=== PATIENT | male | born 1930 | race Caucasian/White ===

== ENCOUNTER 2019-04-23 18:42 | Inpatient (IN) | payer OTHER ==
[~2019-04-23] VITALS: Ht 177.8 cm; Wt 94.7 kg
[2019-04-23 18:44] VITALS: BP 161/80
[2019-04-23 20:01] LABS: ABSOLUTE NEUTROPHILS 4.8 thou/uL (1.4-8.2); BASOPHILS 0.8 % (0.0-2.0); EOSINOPHILS 1.9 % (0.0-3.0); HEMATOCRIT 41.7 % (42.0-52.0); HEMOGLOBIN 14.2 gm/dL (14.0-18.0); LYMPHOCYTES 14.1 % (24.0-44.0); MCH 30.9 pg (26.0-34.0); MONOCYTES 11.3 % (1.0-8.0); PLATELET COUNT 166 thou/uL (150-400); POLYS 71.9 % (36.0-66.0); RBC 4.58 mil/uL (4.50-6.00); RDW 13.1 % (10.5-14.5); WBC 6.6 thou/uL (4.0-11.0)
[2019-04-23 20:08] LABS: CALCIUM 9.3 mg/dL (8.5-10.1); CREATININE 1.1 mg/dL (0.7-1.3); POTASSIUM 3.9 mmol/L (3.5-5.1)
[2019-04-23 20:15] LABS: URINE BILIRUBIN NEGATIVE (Negative); URINE BLOOD NEGATIVE (Negative); URINE CLARITY CLEAR; URINE COLOR YELLOW; URINE GLUCOSE-RANDOM* NEGATIVE (Negative); URINE KETONES NEGATIVE (Negative); URINE LEUKOCYTES-REFLEX NEGATIVE (Negative); URINE NITRITE-REFLEX NEGATIVE (Negative); URINE PROTEIN (DIPSTICK) NEGATIVE (Negative)
[2019-04-23 20:22] LABS: AMP/METHAMP Negative (Negative); BARBITURATES Negative (Negative); BENZODIAZEPINES Negative (Negative); COCAINE Negative (Negative); METHADONE Negative (Negative); OPIATES Negative (Negative); PCP Negative (Negative)
[2019-04-23] MEDS ORDERED: AMBIEN 5 MG TABL5 M1 PO (22:48)
[2019-04-23] MEDS ORDERED: PLAVIX 75 MG TA75 M1 PO (22:49)
[2019-04-23] MEDS ORDERED: PROSCAR 5MG TABL5 MG PO (22:49)
[2019-04-23] MEDS ORDERED: LIPITOR40 MG PO (22:49)
[2019-04-23] MEDS ORDERED: FLOMAX0.4 MG PO (22:51)
[2019-04-23] MEDS ORDERED: MOBIC7.5 MG PO (22:51)
[2019-04-23] MEDS ORDERED: NAMENDA PO (22:51)
[2019-04-24 11:01] VITALS: BP 136/80
[2019-04-24 12:30] VITALS: BP 162/92
--- NOTE | 2019-04-24 12:42 | NUR ---
PT ARRIVES TO FLOOR VIA WC FROM ER-BROUGHT TO ER BY DINAH HERNANDEZ-PER DAUGHTER REPORT PT HAS BEEN LIVING AT [facility] ASSISTED LIVING WITH HIS . PT IS 88 YEARS OLD AND IS REPORTED TO HAVE HAD INCREASED AGITATION AND AGGRESSION FOR PAST 1 WEEK-YELLING AT DAUGHTER-MAKING ELOBORATE CLAIMS ABOUT WANTING TO BE A EDUCATIONAL INSTITUTION PRESIDENT-REPORTS POOR SLEEP AND WAS PRESCRIBED AMBIEN-DISCOVERED TO HAVE TAKEN ENTIRE AMBIEN RX IN 2-3 DAYS. UPON ADMIT IS COOPERATIVE-ANSWERS QUESTIONS BUT IS A POOR HISTORIAN-ORIENTED TO NAME AND PLACE. STATES HE IS WILLING FOR TREQTMENT AND RECOGNIZES HE ISN'T "THINKING RIGHT" REQUIRED SBA X2 TO TRANSFER TO -PROVIDED WITH JAMES SAAVEDRA PT DAUGHTER REQUEST. VS [id number]. DENIES C/O PAIN
--- NOTE | 2019-04-24 19:12 | NUR ---
RESTLESS AND CONFUSED SINCE AND DAUGHTER LEFT AFTER 1700 VISITING-REFUSING TO EAT SUPPER INSISTING THAT HE IS BEING PICKED UP TO GO EAT SUPPER WITH HIS . INCONTINENT OF URINE BRIEF CHANGED AND PERINEAL CARE PROVIDED. USING ROLLER WALKER FOR AMBULATION BUT REQUIRES SBA X1-
[2019-04-24 19:16] VITALS: BP 150/84
[2019-04-24 19:54] VITALS: BP 190/96
[2019-04-24 20:56] VITALS: BP 157/91
--- NOTE | 2019-04-24 21:36 | NUR ---
ASSUMED CARE OF THE PT AT 1915 PM. THE PT HAS BECOME MORE AGITATED THE EVENING HAS PROGRESSED, STATING THAT HIS DAUGHTER WAS COMING AND BRINGING HIM FOOD. CAN'T BE REDIRECTED, EACH TIME HE MENTIONS HIS DAUGHTER HE BECOMES MORE AGITATED. HEART RATE REGULAR, LUNGS CLEAR BILATERALLY, RESP, EVEN AND UNLABORED. +BS HEARD IN ALL 4 QUADRANTS. DENIES ANXIETY AND DEPRESSION. REMAINS ON 12 MINUTE CHECKS.
--- NOTE | 2019-04-24 23:49 | NUR ---
THE PT BECAME AGITATED EARLIER IN THE SHIFT. YELLING AT STAFF AND PEERS, YELLING, "WHERE IS MY ? I WANT HER PHONE NUMBER." "TELL HER THAT I AM GOING TO !!" CALLED THE N.P., OBSTETRICS SPECIALIST WHO ORDERED SEROQUEL 25 MG PO WHICH WAS GIVEN TO THE PT, WITH NO EFFECT. CALLED THE N.P. WHO WAS OBSTETRICS SPECIALIST, STATING THAT THE PT WAS BECOMING MORE AGITATED THE EVENING WORE ON. HE ORDERED FOR THE PT TO RECEIVE 2 MG OF HALDOL AND 0.5 MG OF COGENTIN IM, WHICH WERE GIVEN ORDERED. ABOUT 45 MINUTES LATER THE PT WAS ASSISTED TO BED WITH THE ASSISTANCE OF 2. THE BED ALARM WAS TURNED ON AND HE REMAINS ON 12 MINUTE CHECKS FOR HIS SAFETY.
--- NOTE | 2019-04-25 06:30 | NUR ---
THE PT GOT UP TO GO TO THE BATHROOM WITH THE ASSISTANCE OF TWO, HE WAS A LITTLE UNSTEADY ON HIS FEET. DENIES PAIN AT THIS TIME. REMAINS ON 12 MINUTE CHECKS FOR HIS SAFETY.
--- NOTE | 2019-04-25 08:26 | EKG ---
[place] [id number] [facility] [email or web address] [address] ELECTROCARDIOGRAM REPORT Name: KANDICE REAL Room #: 528B-B ADM IN M.R.#: [id number] Admission: 04/24/19 Attend Phys: Maldonado Beckwith DO Discharge: Date of : [birth year] Report #: [id number] THIS REPORT FOR: //name// [facility] ED Test Date: 2019-04-23 Test Time: 19:10:15 Pat Name: KANDICE REAL Department: Room: 528B Gender: M Victim Witness Administrator: IRINA : [id number] Requested By: Edilberto Asher Order Number: [id number] MD: Chilango Meade Measurements Intervals Mckenzie Rate: 93 P: 10 VT: 250 QRS: -42 QRSD: 93 T: 107 QT: 346 QTc: 431 Interpretive Statements Sinus rhythm Prolonged VT interval Abnormal R-wave progression, early transition Nonspecific ST segment abnormality No previous ECG available for comparison Electronically Signed On 04-25-2019 8:26:19 CDT by Chilango Meade [email or web address] <ELECTRONICALLY SIGNED> By: Chilango Meade MD, [facility] 04/25/19 0826 09 09 Chilango Meade MD, [facility] /EPI
[2019-04-25 08:27] VITALS: BP 151/93
--- NOTE | 2019-04-25 12:02 | NUR ---
PATIENT HAS BEEN ANXIOUS - FREQUENT URGES TO URINATE BUT NO OUTPUT WITH URINAL. HAS REQUESTED URINAL SEVERAL TIMES DURING MORNING HOURS. PATIENT SUFFERS FROM BPH AND FAMILY STATES WITHIN NORM BEHAVIOR. PATIENT VERY SOB WHEN EXERTING SELF. PATIENT CONFUSED - NEEDED TO BE REDIRECTED. LEFT WORD WITH DR. RODARTE ABOUT SOB WITH EXERTION. VITAL STABLE 137/78 WITH PULSE OF 100 WHEN RETAKEN.
[2019-04-25 19:41] VITALS: BP 173/78
--- NOTE | 2019-04-26 02:34 | NUR ---
Care assumed of patient at 1900: Patient sitting in day room at start of shift. Patient alert and oriented to person and place. Confusion and forgetfulness noted. Patient started shift pleasant and cooperative. Patient spoke with his around 1929 on the phone to tell her good night. Patient watched the football game with peers. Interacting well with staff and peers. Ate 100% HS snack. Took HS medication without difficulty. At approximately 2114, patient reported to the desk asking to use the phone. Patient was originally told that it was too late to call his and that she was already in bed. Reminded patient that he had already spoke with her. Patient became very agitated. Wandering unit. Setting off door alarms. Going staff to staff to request the phone. Patient stating that he hasn't talked to his since she left earlier in the day. Patient started to become beligerent with staff. Nurse decided to call his daughter to get the phone number for his . was called and she did not answer the phone. Daughter was called back and asked to speak to patient to see if she could assist in calming him down and re-directing. Daughter told patient that she would check on his and it was OK to go to bed. Patient was able to calm down but remained anxious about the well-being of his . Patient requested a sleeping pill. Due to increased anxiety, patient received Seroquel PRN. Patient did have an episode of bladder incontinence. Patient stated that he did not want to get up to go to the bathroom during the football game so he urinated on himself. Staff assisted patient change his clothing and cleaning up. Patient was assisted to bed after the football game. Appeared to fall asleep without difficulty and has been resting quietly since.
[2019-04-26 07:00] VITALS: BP 114/84
--- NOTE | 2019-04-26 11:30 | NUR ---
YELLING OUT FOR HELP FREQUENTLY THIS AM-INITALLY YELLING OUT FOR SELF-"CUT UP MY FOOD,GET ME MORE WATER NURSE" LATER IN AM STARTS YELLING OUOT FOR PEERS "THERE IS A LADY IN THE HALLWAY WHO IS CONFUSED-YOU NEED TO GO HELP HER" OT TO A MALE VISITOR ON UNIT"NURSE YOU NEED TO COME HELP HIM HE IS UPSET" ORIENTED TO NAME ONLY-CONFUSED INSISTS THAT HIS IS ON WAY TO PICK HIM UP. INCONTINENT OF URINE X2 THIS AM-GAIT UNSTEADY DESPIOTE SBA X1 AND ROLLER WALKER.REMAINS HIGH FALLS RISK
--- NOTE | 2019-04-26 12:04 | NUR ---
KVNG met with Treatment team concerning pt not participating in group therapy, rec. therapy. KVNG requested that pt be in room lock-out. Dr. Beckwith mention that the pt will yesi a new placement for memory care due to [facility] not appropriate place to live. SW speak with the family concernign that request. SW will follow-up with the pt and family.
[2019-04-26 19:25] VITALS: BP 160/85
--- NOTE | 2019-04-26 23:27 | NUR ---
Care assumed of patient at 191: Patient alert and oriented to person. Patient intrusive and agitated. Patient yelling out for nursing staff several times. Patient telling all the staff that they are not doing their jobs. Patient worried about other patients needs being met. Patient needing constant re-direction on personal boundaries with other peers. Patient incontinent of bladder x2. Patient currently using w/c for locomotion about his room and the unit. Patient grabbing staff and shaking his finger at them. Patient ate 100% HS snack. Took HS medication without difficulty. Staff assisted patient call his to speak with her before 8pm. Patient's daughter also called to speak with him before bed. Patient reported generalized pain rated 5/10 and was provided PRN Tylenol which was effective. As patient's were being assisted to bed, patient became more agitated and verbally aggressive toward staff. Patient demanding to call the police. Patient was not able to have ordered PRN Seroquel at that time due to it being too soon. MD notified of behaviors and verbal aggression. Order obtained for Geodon 15mg IM 1x dose at 2039. Patient was assisted to the bathroom and to bed at approximately 2200. Patient continues to lay in bed but yells out every few minutes. Patient has not been able to fall asleep as of now. When staff approach patient to see what he needs, he wants to talk to staff and tell them stories. Patient was asked if he wanted to get up, if he was not ready to go to sleep. Patient then states no, I'm going to sleep, "good night". However, he will continue to yell out randomly. Patient is being monitored frequently for safety.
[2019-04-27 07:29] VITALS: BP 131/73
--- NOTE | 2019-04-27 09:00 | NUR ---
PT OUT IN DINNING ROOM EATING BREAKFAST. PT IN GOOD SPIRITS, SAYING GOOD MORNING TO EVERYONE. PT DENIES ANY PAIN. PT UP WITH WALKER. PT KNOWS PLACE THOUGHT IT WAS SEPT. PT LUNGS CLEAR.
--- NOTE | 2019-04-27 11:00 | NUR ---
PT MOVES IN DINING ROOM TO DIFFERENT CHAIRS. PT LIKES TO HELP OTHER RESIDENTS. PT SLOW TO MOVING OR TRANSFERING CHAIRS.
--- NOTE | 2019-04-27 13:09 | NUR ---
PT LIKES TO HELP OTHER LADYS AT HIS TABLE. WHEN THEY STAND-UP HE WANTS THEM TO SIT DOWN IN A CARING WAY. PT FOUND TALKING ON PHONE TO ANOTHERS PT .
--- NOTE | 2019-04-27 14:15 | NUR ---
PT WALKING TO BATHROOM TO VOID. PERFORMED BLADDER SCAN. NO URINE IN BLADDER AT THIS TIME.
--- NOTE | 2019-04-27 16:55 | NUR ---
FAMILY HERE TO VISIT. PT IN W/C AT THIS TIME.
[2019-04-27 19:45] VITALS: BP 139/82
--- NOTE | 2019-04-27 22:55 | NUR ---
ASSUMED CARE OF THE PT AT 1914 PM. ALERT X 1. MAKES NEEDS KNOWN. WALKS WITH AN UNSTEADY GAIT USING A WALKER. HEART RATE REGULAR. LUNGS CLEAR BILATERALLY, RESP., EVEN, AND UNLABORED. +BS HEARD IN ALL 4 QUADRANTS. ABD SOFT ET NONTENDOR. THE PT IS OBESE. HE BECAME AGITATED THIS EVENING, YELLING AT STAFF AND PEERS, REGARDING THE TV CHANNEL BEING CHANGED AND STATING THAT HE WANTED TO CALL HIS , WHICH HE WAS ABLE TO DO SO, HE SETTLES DOWN FOR A LITTLE WHILE, THEN HE STARTED YELLING AGAIN. CALLED THE PHYSICIAN SORTER PRICER AND HE ORDERED FOR THE PT TO GET THORAZINE 25MG IM FOR AGITATION, WHICH WAS GIVEN TO HIS LEFT BUTTOCKS. HE CONTINUED TO YELL OUT, STATING, "FIRE, FIRE." STAFF WENT IN TO SPEAK WITH THE PT., HE CONTINUED TO YELL OUT, ATTEMPTING TO GET OUT OF BED. THIS BOX TOE CEMENTER CALLED THE PHYSICIAN SORTER PRICER, HE ORDERED FOR THE PT TO RECEIVE THORAZINE 12.5 MG IM, WHICH WAS GIVEN ORDERED. AT THIS TIME, THE PT APPEARS TO BE RESTING QUIETLY ON HIS RIGHT SIDE.
--- NOTE | 2019-04-28 04:23 | NUR ---
THE PT GOT UP EARLIER IN THE SHIFT TO USE THE URINAL AND THEN WENT BACK TO SLEEP. RESP., EVEN, AND UNLABORED. DENIES PAIN AT THIS TIME. REMAINS ON 12 MINUTE CHECKS FOR HIS SAFETY.
[2019-04-28 09:12] VITALS: BP 149/82
--- NOTE | 2019-04-28 10:00 | H ---
[facility] [place] [address] HISTORY AND PHYSICAL Name: FARHANKANDICE PINEDA Room #: 528B-B ADM IN M.R.#: [id number] Admission: 04/24/19 Attend Phys: Maldonado Beckwith DO Discharge: Date of : [birth year] Report #: [id number] THIS REPORT FOR: //name// CC: Maldonado Beckwith FAM unknown DATE OF SERVICE: 04/24/2019 INPATIENT PSYCHIATRIC EVALUATION The patient had a prolonged Emergency Room course. He was brought to the ER on the around 1919 hours and does not have a bed available, so had spent the night in the ER. REASON FOR PRESENTATION: Suspected overdose. Daughter stated he has possibly taken 29 Ambien in 1 week, 30, only one left. Confused, agitated in triage. HISTORY OF PRESENT ILLNESS: This is an 88-year-old male who presents to the ED for evaluation of possible overdose on Ambien. Per the patient's daughter at bedside, this patient had taken 30 days' worth of Ambien in 7 days, there is 1 pill left in his bottle, so assumably he took 29 pills in a 7-day period. The patient believes that some fell on the floor and his daughter has the rest, but the daughter states she does not have the pills and there is no evidence of any pills on the floor. The patient denied taking Ambien on the day of presentation. He has free access to medications and no one else manages his medications. The patient's daughter states he has become more belligerent. He lives with his in independent living at [facility], I believe it is called. His spouse left him out of the bedroom last night because she was scared of his belligerence. The patient noted to be agitated, belligerent upon ER examination, repeatedly stating "I'm asleep." Later, he would yell help, help, help unnecessarily despite being checked on numerous times. PAST MEDICAL HISTORY: Insomnia. Denied SI or HI, additional history. HOME MEDICATIONS: Zolpidem 5 mg p.o. at bedtime p.r.n. sleep, atorvastatin 40 mg p.o. daily, clopidogrel 75 mg p.o. daily, finasteride 5 mg p.o. daily, Namenda 28 mg p.o. daily, tamsulosin 0.4 mg p.o. daily, meloxicam 7.5 mg p.o. daily. SOCIAL HISTORY: Remote history of past cigarette use, denies alochol, illicit drugs REVIEW OF SYSTEMS: From the ER: CONSTITUTIONAL: Negative for fever or chills. EYES: Negative for eye pain or visual change. HENT: Negative for rhinorrhea or sore throat. [address] [address] HISTORY AND PHYSICAL Name: KANDICE REAL Room #: 528B-B ADM IN M.R.#: [id number] Admission: 04/24/19 Attend Phys: Maldonado Beckwith DO Discharge: Date of : [birth year] Report #: [id number] RESPIRATORY: Negative for cough or shortness of breath. CARDIOVASCULAR: Negative for chest pain or palpitations. GASTROINTESTINAL: Negative for abdominal pain. No nausea, vomiting or diarrhea. GENITOURINARY: Negative for burning, urgency, frequency or hematuria. MUSCULOSKELETAL: Negative for back pain or muscle pain. SKIN: Negative for any rashes. NEUROLOGICAL: Negative for numbness, tingling or weakness. ENDOCRINE: Negative for diabetes, hypothyroidism. HEMATOLOGIC AND LYMPHATIC:: Negative for easy bruising or bleeding. A 10-point review and interview performed by myself with the same. Weight 95.26 kilos. He is in a wheelchair. Wears glasses. Physical exam was grossly normal. EKG showed a MA interval of 250 milliseconds with first degree block, no STEMI and probable LVH. LABORATORY DATA: Sodium 139, potassium 3.9, chloride 102, carbon dioxide 30, anion gap 7, BUN 15, creatinine 1.1, estimated GFR 63, glucose 107, calcium 9.3. Hematology: White count 6.6, H and H 14.2 and 41.7, platelet count 166. UDS negative. Urinalysis was negative. RADIOLOGY: Chest x-ray showed cardiomegaly with perihilar vascular prominence. He was kept in the ER overnight. They did give him an injection of Geodon and some Valium, I believe. Marijuana was negative. MENTAL STATUS EXAMINATION: In wheelchair. This is a well-developed, slightly disheveled male, wearing a yellow shirt which is for fall risk on our unit. Attention limited. Concentration limited. Speech normal rate. Thought process linear and goal directed. Thought content, focuses his will be coming to receive him and take him out to dinner. Some psychomotor agitation. No psychomotor retardation. I also forgot to note he was perseverative about tea being gotten warm, which it was iced tea in fact. Memory known to be impaired. Mood and affect congruent, labile, not presently euthymic. Insight impaired. Judgment impaired. Fund of knowledge below average. FORMULATION: An 88-year-old male brought in by family, living with his in [place], currently not showing signs of delirium secondary to Ambien overdose and intoxication. DIAGNOSES: Major neurocognitive disorder, likely of brief collateral. I have spoken with his daughter in the ER; behavioral disturbance. PLAN: Evaluate, stabilize, obtain collateral. Regarding his medications, no Namenda for now, as the 28 dose may be provoking agitation. Continue finasteride, continue Plavix and atorvastatin, Seroquel 25 mg p.o. q.6 p.r.n. [facility] [address] [place] [address] HISTORY AND PHYSICAL Name: KANDICE REAL SUNG Room #: 528B-B ADM IN M.R.#: [id number] Admission: 04/24/19 Attend Phys: Maldonado Beckwith DO Discharge: Date of : [birth year] Report #: [id number] agitation, continue tamsulosin 0.4 mg p.o. at bedtime. ESTIMATED LENGTH OF STAY: 10-14 days. Time spent on interview, review of records, coordination of care approximately 45 minutes. STRENGTHS: Insured, has supportive family. WEAKNESSES: Advancing age, likely neurodegenerative disorder, several physical difficulties including gait. Also we will consult PT. Dietitian will be involved as well. <ELECTRONICALLY SIGNED> By: Maldonado Beckwith DO 04/28/19 1000 0054 0133 Maldonado Beckwith, /nt
--- NOTE | 2019-04-29 04:37 | NUR ---
ASSUMED CARE OF PATIENT AT APPROXIMATELY 1915, PATIENT HAS BEEN IN BED WITH EYES CLOSED THROUGHOUT THE SHIFT, R/T PRN MEDICATIONS GIVEN PRIOR TO THIS SHIFTS ARRIVAL. HE STILL CURRENTLY HAS HIS EYES CLOSED, RR EVEN AND UNLABORED, NO S/S OF DISTRESS. NURSING WILL MAINTAIN ALL PRECAUTIONS TO ENSURE SAFETY AT ALL TIMES.
--- NOTE | 2019-04-29 16:49 | NUR ---
PATIENT ALERT TO SELF AND LOCATION AND COOPERATIVE WITH PLAN OF CARE, BUT REFUSES GROUPS. PATIENT ON ROOM LOCK OUT PER DR LOWERY DUE TO REFUSING GROUPS. PATIENT WALKS WITH SBA AND WALKER BUT WALKS VERY SLOWLY. PATIENT HAS FREQUENT URINATION AND STATES HE HAS ENLARGED PROSTATE. PATIENT WEARS BREIF DURING THE DAY. HE INDICATED HE WAS TOLD BY THE PROVIDER TO DRINKS LOTS OF WATER. PATIENT ATTEMPTS TO HELP OTHER PATIENTS FIND THEIR WAY TO THEIR ROOM AND WILL SOMETIMES CALL OUT FOR HELP ON OTHER PATIENTS BEHALF. PATIENT HEAVILY MEDICATED ON 04/28 DUE TO AGITATION AND SLEPT 13 HOURS LAST NIGHT. USING BEDSIDE COMMODE TODAY DUE TO DIFFICULTY GETTING INTO BATHROOM WITH WALKER AND TOILET SEAT LOW TO FLOOR. PATIENT NEEDS HELP WITH PULLING DOWN AND UP BREIF AND PANTS WHEN TOILETING.
--- NOTE | 2019-04-29 18:21 | NUR ---
PATIENT DAUGHTER CALLED INDICATING PATIENT COULDN'T KEEP EYES OPEN DURING THEIR AFTERNOON VISIT AND REQUEST THE PROVIDER REDUCE THE DOSAGE OF THE NEW MEDICATION HE WAS GETTING. THE NEW MEDICATION APPEARS TO BE DIVALPROEX. THIS NURSE AND THE CHARGE NURSE DID NOT NOTICE THE PATIENT UNABLE TO KEEP EYES OPEN TODAY.
[2019-04-29 19:09] VITALS: BP 108/55
--- NOTE | 2019-04-29 19:39 | NUR ---
ASSUMED CARE OF THE PT AT 1914 PM. ALERT ET ORIENTED X 3. MAKES NEEDS KNOWN. HEART RATE REGULAR, LUNGS CLEAR BILATERALLY, RESP., EVEN, AND UNLABOR. +BS HEARD IN ALL 4 QUADRANTS. +PP BILATERALLY, THE PT WAS LYING IN BED WHEN THIS TRANS ROUTER CAME ON DUTY. REMAINS ON 12 MINUTE CHECKS FOR HIS SAFETY.
--- NOTE | 2019-04-30 01:47 | NUR ---
THE PT HAS BEEN UP TO THE BEDSIDE COMMODE X 1 THIS EVENING, ATTEMPTED TO USE THE URINAL, BUT HE WAS UNSUCCESSFUL, VOIDED ON THE FLOOR WHILE ATTEMPTING TO USE THE URINAL. REMAINS ON 12 MINUTE CHECKS FOR HIS SAFETY.
[2019-04-30 09:40] VITALS: BP 86/54
--- NOTE | 2019-04-30 12:12 | NUR ---
PATIENT HAS BEEN UP AND OUT ON THE UNIT. USES WHEEL CHAIR FOR MOBILITY. PATIENT TOOK ALL HIS MEDICATION WHOLE WITHOUT DIFFICULTY. PATIENT IS EATING MEALS AND DRINKING FLUID WELL. PATIENT DENIES SUCIDAL AND HOMOCIDAL IDEATION. PATIENT PARTICIPATED IN MORNING GROUP THERAPY. PATIENT DENIES HAVING PHYSICAL PAIN. PATIENT REFUSED TO PUT ON YELLOW T-SHIRT, DESPITE ENCOURAGMENT FROM STAFF. NO AGGRESSIONN OR AGITATION NOTED AT THIS TIME, WILL MONITOR FOR SAFETY.
--- NOTE | 2019-04-30 19:47 | NUR ---
ASSUMED CARE @ 19:15, PT IN BED EYES CLOSED RESPIRATIONS EVEN AND UNALBORED, AWAKENS TO VOICE AND TOUCH ON THE SHOULDER. COOPERATED WITH ASSESSMENT. SPOKE TO DAUGHTER WHO CALLED AND CONTINUES TO LIE IN BED. WILL CONTINUE ROUNDING Q 12 MINTUES FOR PATIENT SAFETY.
[2019-04-30 19:48] VITALS: BP 90/56
--- NOTE | 2019-04-30 22:15 | NUR ---
PT IMPATIENT WITH CARE AND GIVEN HS MEDS WHOLE WITH WATER. HE WAS TRANSFERRED TO BED. EXTREMELY UNCOOPERATIVE WITH TRANSFER CARE, PUTTING STAFF AT RISK FOR INJURY BY PATIENT D/T HIS PULLING ON STAFF INSTEAD OF USING WALKER OR BED RAILS FOR PHYSICAL SUPPORT. WILL NOT FOLLOW DIRECTIONS FOR SAFE TRANSFER. WILL CONTINUE TO MONITOR Q 12 MINUTES FOR PT SAFETY.
[2019-05-01 01:26] VITALS: BP 90/56
--- NOTE | 2019-05-01 05:53 | NUR ---
SLEPT 7.8 HOURS OVERNIGHT.
[2019-05-01 08:00] VITALS: BP 151/78
[2019-05-01 12:21] LABS: ALBUMIN 3.5 g/dL (3.4-5.0); DIRECT BILIRUBIN 0.1 mg/dL (<0.1-0.3); TOTAL BILIRUBIN 0.5 mg/dL (<0.1-1.0); TOTAL PROTEIN 6.8 g/dL (6.4-8.2)
--- NOTE | 2019-05-01 13:26 | NUR ---
assumed pt care. report received from nurse. pt is aox4. on ra. vss. pt found in bed at 0700 am lying down half awake. pt was then brought out to activity room via wheelchair. pt ate breakfast and then participated in group. very pleasant. no complaint of pain during this shift. no suicidal thought. pt currently in group meeting with social services. will continue to monitor pt
--- NOTE | 2019-05-01 15:32 | NUR ---
1530: pt was given a shower
--- NOTE | 2019-05-01 15:46 | NUR ---
Date of Admission: 04/24/19 Date of Activity Therapy Assessment: 04/27/19 Activity Goal: Increase leisure awareness and orientation Initial Goal: 1 Group activity/day Weekly progress towards goal: Did not achieve goals Group participation level: Needs some assistance Behaviors observed: Patient is not consistently attending group sessions despite having room lockout orders (patient will sit in day room.) When in attendance, patient enjoys all eyes and ears on him and often shares stories of his many accomplishments. Patient can be demanding and short in patience at times. Plan: No change towards goal
[2019-05-01 19:12] VITALS: BP 157/91
--- NOTE | 2019-05-02 01:47 | NUR ---
ASSUMED CARE @ 19:15, PT IN ROOM IN BED. HS MEDS PROVIDED WHOLE WITH WATER. A&OX2-3. WILL CONTINUE OBSERVATION.
[2019-05-02 09:35] VITALS: BP 126/53
--- NOTE | 2019-05-02 10:06 | NUR ---
DYSPHORIC MOOD-IRRITABLE AND DEMANDING WITH NURSING STAFF-NEEDS REMINDERS TO NOT BE OVERLY INVOLVED WITH THE CARE OF PEERS HE CONTINUES TO THINK HE IS IN CHARGE OF THEM. REQUIRES SBA 1-2 TO AMBULATER SHORT DISTANCES-INCONTINENT OF URINE X3 SO FAR THIS AM.
[2019-05-02 20:28] VITALS: BP 144/58
--- NOTE | 2019-05-02 23:43 | NUR ---
ASSUMED CARE OF THE PT AT 191 PM. THE PT WAS SITTING IN THE DAYROOM ON ONE OF THE COUCHES. ALERT ET CONFUSED AT TIMES. MAKES NEEDS KNOWN. WAS UPSET WHEN HE COULD NOT CHANGE THE CHANNEL ON THE TV. HEART RATE REGULAR. LUNGS CLEAR BILATERALLY, RESP., EVEN, AND UNLABORED. +BS HEARD IN ALL 4 QUADRANTS. ABD SOFT ET NONTENDOR. +PP BILATERALLY. DENIES PAIN, ANXIETY, DEPRESSION, AND A/V HALLUNICATIONS. REMAINS ON 12 MINUTE CHECKS FOR HIS SAFETY.
[2019-05-03 08:33] VITALS: BP 135/67
--- NOTE | 2019-05-03 10:53 | NUR ---
Nutrition: pt admit to [facility] unit with neurocognitive disorder with increased agitation. Seen due to weekend LOS. Pt eating very well, 100% of meals on regular diet. No weight taken since 04/27. Pt voices an intentional weight loss prior to admit of 20#. Very talkative and wanting to share life stories during visit. Obtained food preferences. Low nutrition risk.
[2019-05-03] MEDS ORDERED: DEPAKOTE125 MG PO (13:45)
[2019-05-03] MEDS ORDERED: SEROQUEL 25 MG25 M1 PO (13:47)
--- NOTE | 2019-05-03 16:08 | NUR ---
PATIENT DISCHARGED HOME AT 1610. DAUGHTER TRANSPORTED BY [facility]. PATIENT ALERT AND ORIENTED AND AGREEABLE. REVIEWED DOCUMENTATION AND POSSESSION BELONGING SHEET WITH FAMILY. LAST DOSE OF 37.5 MG. SEROQUEL ADMINISTERED AT 1500. PATIENT ESCORTED DOWN VIA WHEELCHAIR TO EMERGENCY DOOR EXIT. SIGNED APPROPRIATE PAPERWORK - PRESCRIPTION GIVEN OF DEPAKOTE AND EXPLAINED BY DR. LOWERY PRIOR TO DISCHARGE. ADVISED PATIENT SCRIPT FOR ADMISSION TO [facility] WILL BE FAXED TO FACILITY BY DR. LOWERY. NEEDED IN [facility].
--- NOTE | 2019-05-03 16:26 | NUR ---
SPOKE TO TIGRE AT [facility] ABOUT FAXING PRESCRIPTION OF ADMISSION FROM DR. LOWERY INTO [facility]. RECEIVED ADMISSIOR ORDER SHEET VIA FAX - FILLED OUT WITH APPROPRIATE INFORMATION AND FAXED BACK TO FACILITY.
--- NOTE | 2019-05-05 11:19 | D ---
[facility] [place] [address] DISCHARGE SUMMARY Name: FARHANKANDICE SUNG Room #: 528B-B DIS IN M.R.#: [id number] Admission: 04/24/19 Attend Phys: Maldonado Beckwith DO Discharge: 05/03/19 Date of : [birth year] Report #: [id number] THIS REPORT FOR: //name// CC: Maldonado Beckwith [facility] unknown DATE OF SERVICE: 05/03/2019 PSYCHIATRIC DISCHARGE SUMMARY ATTENDING PHYSICIAN: Maldonado Beckwith DO QUALITY ANALYST/TECHNICAL WRITER AT THE TIME OF DISCHARGE: Geovani Nice M.D. DISCHARGE DIAGNOSES: Major neurocognitive disorder with behavioral disturbance, I believe, due to Alzheimer's dementia, improved. Medical comorbidities include hypertension, hyperlipidemia, and benign prostatic hypertrophy. DISCHARGE PLAN: Discharging to officially independent living at [facility], will get adult daycare during the day and will be living with his , now a memory care patient. Placement was advised but the as the DPOA had preference for this arrangement. REASON FOR ADMISSION: Brought to the ED initially for concern of overdose on Ambien, evidently taken the 30-day supply in 7 days. HOSPITAL COURSE: In the Geriatric Psych Unit, the patient was generally cooperative. Early on, he had more sedation. Regarding his medications, we started him on Depakote titrated to 375 mg p.o. twice daily for mood stabilization. Initially, we had him on Seroquel regimen that was as high as, I believe, 100 mg 3 times a day; currently average is 25 mg p.o. 3 times a day with recommended taper off in the next 2 weeks. Also, atorvastatin 40 mg p.o. daily for hyperlipidemia, clopidogrel 75 mg p.o. daily for anticoagulation, finasteride 5 mg p.o. daily for BPH, tamsulosin 0.4 mg p.o. at bedtime; zolpidem, we will stop; meloxicam, we will stop. LABORATORY DATA: On this admission, last Depakote level was 41 that was before we increased it on 05/01/2019. UDS is negative. Urinalysis negative. Chemistry is grossly normal with estimated GFR of 63. AST 14, ALT 23. Ammonia level was 30. We thought he was oversedated. Also, had some protein bound concerns for his meds but prealbumin was being 21.1. BMI of this patient also is 29.9. CBC is grossly normal. RADIOLOGY DONE: Chest x-ray done on admission, which was negative. [facility] [address] [place] [address] DISCHARGE SUMMARY Name: KANDICE REAL PINEDA Room #: 528B-B DIS IN .R.#: [id number] Admission: 04/24/19 Attend Phys: Maldonado Beckwith, Discharge: 05/03/19 Date of : [birth year] Report #: [id number] VITAL SIGNS AT THE TIME OF DISCHARGE: Temperature 37.1, pulse 83, respirations 18, BP 135/67, O2 sat 94%. Nonambulatory, in wheelchair. MENTAL STATUS EXAMINATION: This is a well-developed, fairly nourished female wearing glasses. Attention limited. Concentration limited. Speech is normal rate. Thought process linear and goal oriented. Thought content focused on discharge. No psychomotor retardation. No psychomotor agitation. Mood and affect is congruent and euthymic. Memory not formally tested. Insight limited. Judgment limited. Fund of knowledge below average. PROGNOSIS: For this patient is guarded given his age, likely neurodegenerative disease. <ELECTRONICALLY SIGNED> By: Maldonado Beckwith DO 05/05/19 [id number] Maldonado Beckwith DO /nt
== END 2019-05-03 16:59 | disposition home or self-care (01) | DRG 57 ==
LOC: ER 18:42 → EROBS 04-24 10:25 → SBH 04-24 10:25 → ER 04-24 11:29 → SBH 05-03 16:59
PROVIDERS: Emergency Medicine; ADMIT Psychiatry & Neurology Psychiatry
DX: G30.9 Alzheimer's disease, unspecified (principal); F02.81 Dementia in other diseases classified elsewhere, unspecified severity, with behavioral disturbance; T42.6X2A Poisoning by other antiepileptic and sedative-hypnotic drugs, intentional self-harm, initial encounter; G47.00 Insomnia, unspecified; N40.0 Benign prostatic hyperplasia without lower urinary tract symptoms; E78.5 Hyperlipidemia, unspecified; I10 Essential (primary) hypertension; Z87.891 Personal history of nicotine dependence; Y92.89 Other specified places as the place of occurrence of the external cause; Z79.899 Other long term (current) drug therapy
CPT/HCPCS: 10880